=== PATIENT | male | born 1955 | race Caucasian/White ===

== ENCOUNTER 2016-11-14 17:03 | Emergency (ER) | payer OTHER ==
[~2016-11-14] VITALS: Ht 177.8 cm; Wt 75.5 kg
[~2016-11-14 17:03] MED LIST: LOW DOSE ASPIRI81 M1 PO; PRAVASTATIN SOD40 MG PO
[2016-11-14 18:57] LABS: HEMATOCRIT 42.9 % (38.0-50.0); MCH 30.4 PG (29.0-34.0); MCHC 33.6 G/DL (30.0-36.0); MCV 90.7 FL (86-99); MEAN PLAT.VOLUME 10.7 uM^3 (9.0-12.4); PLATELET COUNT 224 K/uL (156-360); RBC DIS.WIDTH-CV 13.6 % (11.8-14.6); RBC DIS.WIDTH-SD 45.8 % (39-53); RED BLOOD COUNT 4.73 M/uL (4.00-5.50); WHITE BLOOD COUNT 8.4 K/uL (4.1-10.2)
[2016-11-14 19:06] LABS: CHLORIDE 103 mEq/L (99-109); POTASSIUM 3.9 mEq/L (3.7-5.4); SODIUM 138 mEq/L (136-147)
[2016-11-14 19:07] LABS: GLUCOSE 85 mg/dL (70-99)
[2016-11-14 19:09] LABS: ANION GAP 9 MEQ/L (2-14)
[2016-11-14 19:11] LABS: GFR ESTIMATE (CALCULATED) > 59 mL/min/
[2016-11-14 19:12] LABS: UREA NITROGEN (BUN) 17 mg/dL (9-23)
[2016-11-14 21:37] VITALS: BP 140/73
== END 2016-11-14 21:39 | disposition home or self-care (01) ==
LOC: EME 17:03
DX: R51 Headache (principal); H53.8 Other visual disturbances; I10 Essential (primary) hypertension; E78.5 Hyperlipidemia, unspecified; F17.200 Nicotine dependence, unspecified, uncomplicated; Z79.82 Long term (current) use of aspirin
CPT/HCPCS: 70450; 71020; 80048; 85027; 93005; 99281; 99283